=== PATIENT | female | born 1955 | race Caucasian/White ===

== ENCOUNTER 2016-10-15 12:04 | Day surgery (SDC) | payer OTHER ==
[2016-10-15] MEDS ORDERED: LACTATED RINGERS 1,000 ML ONE (12:09)
[2016-10-15] MEDS ORDERED: IV START KIT ONE (12:09)
[2016-10-15] MEDS ORDERED: LACTATED RINGERS 1,000 ML IV SCH (13:45)
[2016-10-15] MEDS ORDERED: PROPOFOL 60 ML IV ONE (13:55)
== END 2016-10-15 14:15 | disposition home or self-care (01) ==
LOC: SDC 12:04
PROVIDERS: ATTEND Surgery
PROC: 0DJD8ZZ Inspection of Lower Intestinal Tract, Via Natural or Artificial Opening Endoscopic (ICD-10-PCS; principal; 2016-10-15)
DX: Z12.11 Encounter for screening for malignant neoplasm of colon (principal); K57.30 Diverticulosis of large intestine without perforation or abscess without bleeding; Z83.71 Family history of colonic polyps; E03.9 Hypothyroidism, unspecified; E04.9 Nontoxic goiter, unspecified; Z79.82 Long term (current) use of aspirin; Z88.2 Allergy status to sulfonamides
CPT/HCPCS: 45378; J7120